=== PATIENT | male | born 1965 | race Caucasian/White ===

== ENCOUNTER 2017-11-11 16:58 | Emergency (ER) | payer MEDICARE ==
[~2017-11-11] VITALS: Ht 182.9 cm; Wt 81.7 kg
[~2017-11-11 16:58] MED LIST: ASPIR 8181 MG PO; FLEXERIL PO; HYDROCODONE-AP1 EAC6 PO; IBUPROFEN 600600 M1 PO; LISINOPRIL10 MG PO; NOHOMEMEDICATIONS; NORCO 5-325 TA1 EAC1 PO; NORCO 5-325 TA1 EACH PO; NORVASC2.5 MG PO; PERCOCET 5-3251 EACH PO
[2017-11-11] MEDS ORDERED: MEDROLDOSEPACK PO (18:28)
[2017-11-11] MEDS ORDERED: HYDROCODONE-AP1 EAC6 PO (18:28)
[2017-11-11] MEDS ORDERED: ROBAXIN 750 MG750 M1 PO (18:28)
[2017-11-11 18:45] VITALS: BP 164/95
--- NOTE | 2017-11-12 17:26 | EKG ---
[place] [address] ELECTROCARDIOGRAM REPORT Name: LEDAKARLA Madeline Room: [facility]#: [id number] Admission: 11/11/17 Attend Phys: Discharge: 11/11/17 Date of : 61 Report #: [id number] THIS REPORT FOR: //name// [facility] Test Date: 2017-11-11 Test Time: 17:43:39 Pat Name: KARLA TOMPKINS Department: Room: Gender: M Analysis Engineer: Sarah CRUM : 1965 Requested By: Viola Angelo Order Number: [id number] MD: Kendall Penaloza Measurements Intervals [place] Rate: 70 P: 13 [place]: 166 QRS: 30 QRSD: 111 T: 50 QT: 400 QTc: 432 Interpretive Statements Sinus rhythm Inferior infarct, 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
== END 2017-11-11 18:46 | disposition home or self-care (01) ==
LOC: M.ERS 16:58
DX: M54.2 Cervicalgia (principal); F17.210 Nicotine dependence, cigarettes, uncomplicated; Z88.5 Allergy status to narcotic agent; Z86.14 Personal history of Methicillin resistant Staphylococcus aureus infection

== ENCOUNTER 2020-01-21 14:06 | Inpatient (IN) | payer MEDICARE ==
[~2020-01-21] VITALS: Ht 188 cm; Wt 79.4 kg
[~2020-01-21 14:06] MED LIST changes: +MEDROLDOSEPACK PO; +NORVASC 2.5 MG2.5 M1 PO; -NORVASC2.5 MG PO; +ROBAXIN 750 MG750 M1 PO
[2020-01-21 14:14] VITALS: BP 182/73
[2020-01-21 14:28] LABS: URINE BILIRUBIN NEGATIVE (Negative); URINE BLOOD NEGATIVE (Negative); URINE CLARITY CLEAR; URINE COLOR YELLOW; URINE GLUCOSE-RANDOM NEGATIVE (Negative); URINE KETONES NEGATIVE (Negative); URINE LEUKOCYTES-REFLEX NEGATIVE (Negative); URINE NITRITE-REFLEX NEGATIVE (Negative); URINE PROTEIN TRACE (Negative); URINE SPECIFIC GRAVITY 1.025 (1.005-1.030)
[2020-01-21 14:30] LABS: ABSOLUTE BASOPHILS 0.1 thou/uL (0.0-0.2); ABSOLUTE EOSINOPHILS 0.2 thou/uL (0.0-0.7); ABSOLUTE LYMPHOCYTES 1.1 thou/uL (0.8-5.3); ABSOLUTE MONOCYTES 0.4 thou/uL (0.0-1.2); ABSOLUTE NEUTROPHILS 3.7 thou/uL (1.6-8.1); BASOPHILS 1.2 %; EOSINOPHILS 4.3 %; HEMATOCRIT 36.3 % (42.0-52.0); HEMOGLOBIN 12.6 gm/dL (14.0-18.0); LYMPHOCYTES 20.5 %; MCH 30.6 pg (26.0-34.0); MCHC 34.7 g/dL (28.0-37.0); MCV 88.4 fL (80.0-100.0); MONOCYTES 7.8 %; NUCLEATED RBCS 0 /100WBC; PLATELET COUNT* 286 thou/uL (150-400); POLYS 66.2 %; RBC 4.11 mil/uL (4.50-6.00); RDW-CV 13.4 % (10.5-14.5); WBC 5.5 thou/uL (4.0-11.0)
[2020-01-21 14:36] LABS: AMP/METHAMP POSITIVE (Negative); BARBITURATES Negative (Negative); BENZODIAZEPINES Negative (Negative); COCAINE Negative (Negative); METHADONE Negative (Negative); OPIATES Negative (Negative); PCP Negative (Negative); THC POSITIVE (Negative)
[2020-01-21 14:38] LABS: CALCIUM 8.5 mg/dL (8.5-10.1); CREATININE 1.2 mg/dL (0.6-1.3)
[2020-01-21 14:42] LABS: ALBUMIN 3.7 g/dL (3.4-5.0); TOTAL BILIRUBIN 0.4 mg/dL (<0.1-1.0); TOTAL PROTEIN 7.1 g/dL (6.4-8.2)
[2020-01-21 14:55] LABS: SALICYLATE 4.4 mg/dL (2.8-20.0)
[2020-01-21 14:58] LABS: ACETAMINOPHEN < 2 ug/mL (10-30); ALCOHOL < 10 mg/dL (<10)
--- NOTE | 2020-01-21 15:19 | NUR ---
SPOKE TO CHEYANNE LYNN WITH POISION CONTROL. RECOMMENDS GETTING A ABG, AND CHECK CBC, URINALYSIS DRUG SCREEN, AND HEMOCCULT THE NAPROXEN CAN CAUSE GASTRIC IRRITATION. SHE REPORTS THAT NAPROXEN CAN ALTER THE TAJ GLUTAMINE
[2020-01-21 15:52] LABS: BE -1.4 mmol/L (-2 to +3); PCO2 45.9 mmHg (35.0-45.0); pH 7.345 (7.340-7.450)
[2020-01-21 15:55] LABS: PO2 186.3 mmHg (75.0-100.0)
[2020-01-21 19:10] VITALS: BP 194/74
[2020-01-21 20:09] VITALS: BP 183/84
[2020-01-21 21:00] VITALS: BP 194/86
[2020-01-21 22:01] VITALS: BP 180/84
[2020-01-21 23:01] VITALS: BP 184/88
--- NOTE | 2020-01-21 23:37 | NUR ---
PATIENT ARRIVED ON UNIT AT 1930. REPORT RECEIVED FROM ED RN. PATIENT REMAINS ONLY RESPONSIVE TO PAINFUL STIMULI AT THIS TIME. IV PATENT TO FLUIDS INFUSING. POT+ INFUSION COMPLETED. BP REMAINS HYPERTENSIVE. CRAPS MANAGER ASSESSMENT COMPLETED CHARTED. WILL CONTINUE TO MONITOR.
[2020-01-22] VITALS (11 sets, daily range): BP systolic 149–190; BP diastolic 62–97
[2020-01-22 04:24] LABS: HEMATOCRIT 40.7 % (42.0-52.0); HEMOGLOBIN 13.8 gm/dL (14.0-18.0); MCH 30.1 pg (26.0-34.0); MCV 88.7 fL (80.0-100.0); MPV 6.8 fl. (7.2-11.1); RBC 4.59 mil/uL (4.50-6.00); RDW-CV 13.6 % (10.5-14.5); WBC 8.9 thou/uL (4.0-11.0)
[2020-01-22 04:37] LABS: ALBUMIN 3.4 g/dL (3.4-5.0); CALCIUM 8.5 mg/dL (8.5-10.1); CREATININE 0.9 mg/dL (0.6-1.3); MAGNESIUM 2.1 mg/dL (1.8-2.4); PHOSPHORUS* 2.2 mg/dL (2.5-4.9); POTASSIUM 3.8 mmol/L (3.5-5.1)
--- NOTE | 2020-01-22 06:30 | NUR ---
PT UNRESPONSIVE THIS SHIFT UNTIL 0610 WHEN PATIENT WOKE UP. PT ABLE TO VERBALIZE NAME AND AGE. UNABLE TO ANSWER OTHER QUESTIONS, VERY CONFUSED AND STATES HE DOES NOT REMEMBER HOW HE GOT HERE. PT HAD ONE EPISODE OF EMESIS. DR. ORTEGA NOTIFIED AND NEW ORDERS RECEIVED. PT RESTING IN BED QUIETLY AT THIS TIME. NEGATIVE SEPSIS SCREENING. HOURLY ROUNDING COMPLETED. CALL LIGHT WITHIN REACH.
--- NOTE | 2020-01-22 09:10 | EKG ---
[place] [address] ELECTROCARDIOGRAM REPORT Name: KARLA TOMPKINS Room: [address] ADM IN M.R.#: [id number] Admission: 01/21/20 Attend Phys: Thai lopez Sa Discharge: Date of : 61 Date of Service: 01/21/20 1407 Report #: [id number] THIS REPORT FOR: //name// [facility] ED Test Date: 2020-01-21 Test Time: 14:07:09 Pat Name: KARLA TOMPKINS Department: Room: [facility] Gender: M Pulmonology Technician: CCD : 1965 Requested By: Zander Craig Order Number: [id number] Kwasi MD: Kendall Penaloza Measurements Intervals [place] Rate: 65 P: 22 [place]: 171 QRS: 46 QRSD: 125 T: 57 QT: 443 QTc: 461 Interpretive Statements Sinus rhythm Left ventricular hypertrophy Diffuse ST elevation, consider pericarditis Compared to ECG 11/11/2017 17:43:39 Left ventricular hypertrophy now present ST (T wave) deviation now present Electronically Signed On 01-22-2020 9:09:34 CDT by Kendall Penaloza [email or web address] <ELECTRONICALLY SIGNED> By: Kendall Penaloza MD, FACC 01/22/20 0909 1407 1407 Kendall Penaloza MD, FACC /EPI
--- NOTE | 2020-01-22 09:35 | NUR ---
PT RETURNED FROM MRI AT THIS TIME.
[2020-01-22 10:04] LABS: CHOLESTEROL 143 mg/dL (<200); HDL CHOLESTEROL 50 mg/dL (>40); LDL CHOLESTEROL 83 mg/dL (<100); SERUM ASSESSMENT Clear; TC:HDL 2.9 Ratio (Not establshd); TRIGLYCERIDE 54 mg/dL (<150); VLDL 11 mg/dL (<40)
--- NOTE | 2020-01-22 10:42 | NUR ---
ASSUMED CARE OF PT AROUND 0730 THIS AM. REFER TO ASSESSMENT. PT EASILY AWAKEN THIS AM. ORIENTED TO SELF AND PLACE, CONFUSED. IMPULSIVE MOVEMENT NOTED. PT ANXIOUS TO KNOW WHERE HIS SIGNIFICANT OTHER IS. SIGNIFICANT OTHER STATES SHE IS GETTING GAS AND COMING TO THE HOSPITAL. THIS WAS AT 0800 THIS AM AND SO HAS NOT BEEN TO HOSPITAL AT THIS TIME. PT VSS. TELE SR. DENIES SI TO PHYSICIAN THIS AM. PHYSICIAN STATES TO CONSULT TELE PSYCH WHEN PT MORE ALERT AND ORIENTED. ORDERS TO TRANSFER TO MED/SURG STATUS. REPORT GIVEN TO MED/ICE SKATING TEACHER. ALL CONCERNS ADDRESSED. PT TO TRANSFER TO ROOM 313 WITH ALL BELONGINGS. CLWR. WCTM.
--- NOTE | 2020-01-22 12:05 | NUR ---
THIS RN TRANSPORTED UP FROM ICU UP TO 3W. PT SETTLED IN ROOM 313. NO COMPLAINTS AT THIS TIME, WONDERING WHERE HIS SIGNIFICANT OTHER, DOLORES, IS. PER 3W RN DOLORES CALLED FOR UPDATE ON PT PRIOR TO PT ARRIVING ON 3W FLOOR AND WAS TOLD THAT THE PT WAS EN ROUTE TO THE FLOOR. WILL CALL DOLORES AND TELL HER PT IS SETTLED IN ROOM. THIS RN HAS REVIEWED AND AGREES WITH THE ASSESSMENT AND CHARTING OF FELICIANO LYNN. PT CURRENTLY RESTING IN BED. CALL LIGHT IS WITHIN REACH. BED ALARM IS ON. FLUIDS INFUSING. GLEASON IN PLACE TO DD. HOURLY ROUNDING PERFORMED. WCTM.
--- NOTE | 2020-01-22 12:16 | NUR ---
Pt moved to room 313 prior to CM being able to access
--- NOTE | 2020-01-22 19:26 | NUR ---
PT CONTINUING TO IMPROVE - NOW AWAKE, ALERT, ORIENTED TO PERSON, PLACE, SIUTATION AND MONTH. SIGNIFICANT OTHER DOLORES VISITED FOR A FEW HOURS, PT WAS HAPPY ABOUT THAT. FLUIDS STILL INFUSING. PT PASSED BEDSIDE SWALLOW AND DIET WAS UPGRADED - APPETITE EXCELLENT. GLEASON IN PLACE TO DD. PT MOVING OFTEN IN THE BED. NO COMPLAINTS OF PAIN. PT CURRENTLY WATCHING TV IN BED. CALL LIGHT IS WITHIN REACH. HOURLY ROUNDING PERFORMED. FALL PRECAUTIONS IN PLACE.
[2020-01-23] VITALS: BP 172/86
--- NOTE | 2020-01-23 06:28 | NUR ---
PT SLEPT OFF AND ON OVERNIGHT WITHOUT COMPLAINTS. HAD BOX LUNCH AT HS AND TOLERATED WITHOUT N/V. AO TO SELF, SITUATION, PLACE. HAND SECURITY DELIVERY SPECIALIST EQUAL BILATERALLY, NEURO CHECKS WITHOUT DEFICIT. BP ELEVATED THIS SHIFT, HYDRALAZINE GIVEN PRN WITH FAIR RESULTS. NO COMPLAINTS OF PAIN. GLEASON DRAINING YELLOW URINE. RAC IVF INFUSING PER PUMP. CURRENTLY SHELTERING IN LY IN BED WITH MASK PER [place] WARNING PROTOCOL. FREQUENT OBSERVATION.
[2020-01-23 07:42] VITALS: BP 154/94
[2020-01-23] MEDS ORDERED: HYDROCHLOROTHIA25 M2 PO (12:03)
[2020-01-23 12:42] VITALS: BP 154/94
--- NOTE | 2020-01-23 15:51 | NUR ---
PT DISCHARGED HOME. COPY OF DISCHARGE PAPERWORK TO PT WITH EXPLAINATION. PT VERBALIZED UNDERSTANDING. PRESCRIPTION GIVEN TO PT. IV ACCESS REMOVED.
--- NOTE | 2020-01-31 17:53 | EEG ---
[address] [address] EEG STUDY REPORT Name: KARLA TOMPKINS Room: [address] IN M.R.#: [id number] Admission: 01/21/20 Attend Phys: Thai Funes Discharge: 01/23/20 Date of : 61 Report #: [id number] THIS REPORT FOR: //name// CC: MEY physician/PCP Thai Wiseman DATE OF SERVICE: 01/21/2020 This patient is being evaluated for altered mental status. EEG was done by placing the electrode by standard 10-20 system of electrode placement. Both referential and sequential montages were used for recording. Background activity in this patient's EEG is very disorganized and poorly formed. It would appear it is about 5-6 Hz and 30 microvolt. That is all the EEG went throughout the record. Photic stimulation is unremarkable. IMPRESSION: This is a severely abnormal EEG, which can occur with encephalopathy. However, it is a nonspecific finding which can occur with multiple other etiologies including bilateral lesions, deep brain stem problem, etc. Clinical correlation is recommended. <ELECTRONICALLY SIGNED> By: Johny Simon MD 01/31/20 1753 13 17Pardamon Simon MD /nt
--- NOTE | 2020-01-31 17:53 | CON ---
[address] [address] CONSULTATION Name: KARLA TOMPKINS Room: [address] IN M.R.#: [id number] Admission: 01/21/20 Attend Phys: Thai Funes Discharge: 01/23/20 Date of : 61 Report #: [id number] THIS REPORT FOR: //name// cc: MEY Mendoza family physician/PCP MEY - Kelly family physician/PCP ~ THIS REPORT FOR: //name// CC: MEY physician/PCP Thai Wiseman DATE OF SERVICE: 01/21/2020 HISTORY OF PRESENT ILLNESS: This is a 54-year-old male patient who was evaluated by me for altered mental status. I talked to Dr. Craig, the Emergency Room physician, who admitted this patient. Subsequently, I talked to Dr. Wiseman who is the admitting physician. This patient is pretty unresponsive. It looks like it is because of polysubstance abuse. His urine drug screen is positive for amphetamines, marijuana and it looks like he took a lot of Naprosyn also. His speech has become mumbled. He is pretty obtunded. He is unable to provide any history at all. It looks like this patient was becoming progressively more odd and then collapsed before coming to the Emergency Room. Emergency Room note is signed at 02:11 and looks like that is the time the patient was seen by Emergency Room physician. A routine consult was called to me and I saw the patient. REVIEW OF SYSTEMS: A 14-point review of system was attempted from the record. It looks like he is admitted with polysubstance abuse. Prior history is not known. He is an everyday smoker, but that is all the history I can get. PHYSICAL EXAMINATION: Indicates that he is unresponsive. He does not do anything. He does not move anything for me. He has no meningeal sign. This patient has alteration of mental status of unknown origin. He has amphetamines abroad and that can cause stroke. My original plan was to get an MRI of the brain done as well as MRA done. Unfortunately, we could not get hold of the significant other to get the history because nurses tell me from the Emergency Room, but they called all three numbers and they were incorrect numbers; therefore, I asked them to get a CTA of the head and neck. That was done and that was reviewed. It will indicate that this patient has no blockage. IMPRESSION AND RECOMMENDATION: The patient has polysubstance abuse. Whether he has any stroke on top of that, it is not clear. It is unlikely to make any significant difference to the management at this stage. This is because he is not a TPA candidate even if he had a stroke because he is way passed the window. He is not a thrombectomy candidate because his large vessel does not show any thrombus. We will try to get an MRI done whenever [place] [address] CONSULTATION Name: KARLA TOMPKINS Room: [address] IN ..#: [id number] Admission: 01/21/20 Attend Phys: Thai lopez Mason Discharge: 01/23/20 Date of : 61 Report #: [id number] up. That will be important to see if the patient had a stroke or not, but it is unlikely to change any treatment because CT angiogram is unremarkable. I discussed all of it with multiple physicians involved in this patient's care and reviewed multiple notes in this patient. About 50 minutes of time was spent taking care of this patient and majority was spent coordinating the patient's care by reviewing his multiple imaging studies as well as talking to other health infant caregiver. I talked to the nurses vicki also. <ELECTRONICALLY SIGNED> By: Johny Simon MD 01/31/20 1753 [id number] Simon MD /nt
== END 2020-01-23 15:52 | disposition home or self-care (01) | DRG 917 ==
LOC: M.ERS 14:06 → M.ICU 16:03 → M.TBA-ER 16:03 → M.ICU 19:18 → M.3W 01-22 11:36
PROVIDERS: Emergency Medicine; ADMIT Family Medicine; ATTEND Family Medicine
DX: T39.312A Poisoning by propionic acid derivatives, intentional self-harm, initial encounter (principal); G92 Toxic encephalopathy; R45.851 Suicidal ideations; K08.409 Partial loss of teeth, unspecified cause, unspecified class; Z96.651 Presence of right artificial knee joint; I73.9 Peripheral vascular disease, unspecified; F17.210 Nicotine dependence, cigarettes, uncomplicated; F10.11 Alcohol abuse, in remission; I10 Essential (primary) hypertension; F19.10 Other psychoactive substance abuse, uncomplicated; E87.6 Hypokalemia; Y92.89 Other specified places as the place of occurrence of the external cause; Z79.82 Long term (current) use of aspirin; Z98.52 Vasectomy status; Z79.891 Long term (current) use of opiate analgesic; Z88.5 Allergy status to narcotic agent; Z79.899 Other long term (current) drug therapy